=== PATIENT | female | born 1980 | race Caucasian/White ===

== ENCOUNTER 2022-06-02 23:55 | Emergency (ER) | payer SELFPAY | END 2022-06-03 02:33 | disposition home or self-care (01) | LOC: JD.ED 23:55 | DX: T19.2XXA Foreign body in vulva and vagina, initial encounter (principal); F17.210 Nicotine dependence, cigarettes, uncomplicated | CPT/HCPCS: 99283 ==

== ENCOUNTER 2022-06-12 00:13 | Emergency (ER) | payer SELFPAY ==
[2022-06-12] MEDS ORDERED: Bupivacaine 0.5% 10 ML SDV INJECT ONE (02:03)
[2022-06-12] MEDS ORDERED: Lidocaine 1% with EPINEPHrine 1:100,000 10 ML MDV INJECT ONE (02:03)
== END 2022-06-12 03:09 | disposition home or self-care (01) ==
LOC: JD.ED 00:13
DX: S01.21XA Laceration without foreign body of nose, initial encounter (principal); S01.511A Laceration without foreign body of lip, initial encounter; S00.83XA Contusion of other part of head, initial encounter; F10.929 Alcohol use, unspecified with intoxication, unspecified; F17.210 Nicotine dependence, cigarettes, uncomplicated; Z88.0 Allergy status to penicillin; W18.30XA Fall on same level, unspecified, initial encounter; Y92.89 Other specified places as the place of occurrence of the external cause
CPT/HCPCS: 12011; 70486; 99284; J3490

== ENCOUNTER 2023-02-15 23:32 | Emergency (ER) | payer SELFPAY | END 2023-02-16 00:06 | disposition left against medical advice (07) | LOC: JD.ED 23:32 | DX: Z53.21 Procedure and treatment not carried out due to patient leaving prior to being seen by health care provider (principal) ==